=== PATIENT | female | born 1970 | race Asian ===

== ENCOUNTER 2021-12-22 09:30 | Outpatient (CLI) | payer OTHER ==
[2021-12-22] MEDS ORDERED: lidocaine 1% 20 ML MDV ONE (09:33)
[2021-12-22] MEDS ORDERED: lidocaine 1% 20 ML MDV SUBQ ONE (11:00)
--- NOTE | 2021-12-22 13:56 | Ultrasound Report ---
PROCEDURE: FNA Bx w/US Gdn 1st Les INDICATIONS: THYROID NODULE TECHNIQUE: The indications, alternatives, benefits, risks, and complications of the procedure were explained to the patient. Written informed consent was obtained and placed in the chart. The area of interest wa s examined sonographically and a site was chosen for ultrasound guided percutaneous sampling. The sk in was prepared and draped in the usual fashion, and anesthetized with 1% lidocaine infiltrated from the skin down to the lesion. Multiple passes were then performed, with contents emptied into an [facility] pathology specimen container. A bandage was applied to the area of access at completion of t he study. COMPARISON: None. FINDINGS: Location(s) of lesion(s) sampled: Left inferior pole 1.7 x 1.3 x 1.6 cm nodule Butler: 25 gauge hypodermic needles. Number of passes: 8 Medications: 1% lidocaine for local anaesthesia. Complications: None. IMPRESSION: Successful ultrasound-guided left inferior pole thyroid nodule fine needle aspiration, with cytology results pending. Reviewed by: Angelina Baires MD on 12/22/2021 1:55 PM PDT Approved by: Angelina Baires MD on 12/22/2021 1:55 PM PDT Station ID: [id number]
== END 2021-12-22 09:31 | disposition home or self-care (01) ==
LOC: DI 09:30
PROVIDERS: ATTEND Family Medicine
DX: E04.1 Nontoxic single thyroid nodule (principal)
CPT/HCPCS: 10005